=== PATIENT | female | born 1975 | race Caucasian/White ===

== ENCOUNTER 2017-02-02 11:56 | Emergency (ER) | payer MEDICARE, OTHER ==
[2017-02-02] MEDS ORDERED: MIDODRINE HCL10 M1 PO (12:15)
[2017-02-02] MEDS ORDERED: TOPAMAX100 M2 PO (12:16)
[2017-02-02] MEDS ORDERED: NEURONTIN600 M1 PO (12:16)
[2017-02-02] MEDS ORDERED: FLUDROCORTISON0.1 M1 (12:17)
[2017-02-02 12:28] LABS: BASO % 0.3 % (0-2); EOS % 1.7 % (0-7); EOSINOPHIL ABSOLUTE COUNT 0.1 tho/cmm (0.0-0.7); HCT-HEMATOCRIT 44.1 % (34.0-49.0); HGB-HEMOGLOBIN 15.3 gm/dl (12.0-15.5); IMMATURE GRANULOCYTES ABSOLUTE 0.01 tho/cmm (0-0.03); IMMATURE GRANULOCYTES PERCENT 0.1 % (0-0.3); LYMPH ABSOLUTE COUNT 1.9 tho/cmm (0.8-4.5); MCH (MEAN CORPUSCULAR HGB) 27.8 pg (28.0-32.0); MCHC MEAN CORPUSCULAR HGB CONC 34.7 % (32.0-36.0); MCV (MEAN CELL VOLUME) 80.2 fl (82.0-96.0); MEAN PLATELET VOLUME 9.4 cmc (9.4-12.4); MONO % 5.5 % (0-12); MONOCYTE ABSOLUTE COUNT 0.4 tho/cmm (0.0-1.2); NEUTROPHIL ABSOLUTE COUNT 5.1 tho/cmm (1.6-8.0); NEUTROPHIL-AUTOMATED 5.1 tho/cmm (1.6-8.0); NEUTROPHILS % 67.4 % (40-80); PLATELET COUNT 282 tho/cmm (150-450); RED CELL DISTRIBUTION WIDTH 13.9 % (12.4-16.4); WHITE BLOOD COUNT 7.6 tho/cmm (4.0-10.0)
[2017-02-02] MEDS ORDERED: LUNESTA1 M1 PO (12:34)
[2017-02-02] MEDS ORDERED: ZYRTEC10 M7 PO (12:34)
[2017-02-02] MEDS ORDERED: NEXIUM40 M1 PO (12:34)
[2017-02-02] MEDS ORDERED: ASPIRIN EC81 MG PO (12:34)
[2017-02-02] MEDS ORDERED: MAXALT10 M1 (12:35)
[2017-02-02] MEDS ORDERED: ZOFRAN4 M2 (12:35)
[2017-02-02] MEDS ORDERED: FOLTX TABLET1 EAC1 PO (12:36)
[2017-02-02] MEDS ORDERED: multivit (12:36)
[2017-02-02] MEDS ORDERED: iron (12:37)
[2017-02-02] MEDS ORDERED: CYMBALTA60 M1 PO (12:38)
[2017-02-02] MEDS ORDERED: botox (12:38)
[2017-02-02] MEDS ORDERED: LIDOPATCH1 EAC1 (12:38)
[2017-02-02 13:51] LABS: ALBUMIN 3.6 g/dl (3.5-5.0); ALKALINE PHOSPHATASE 91 U/L (33-138); ALT/SGPT 28 U/L (12-78); BILIRUBIN,TOTAL 0.3 mg/dl (0-1.5); BLOOD UREA NITROGEN 7 mg/dl (6-24); CALCIUM 8.6 mg/dl (8.5-10.5); CARBON DIOXIDE-VENOUS 21 mmol/L (22-32); CHLORIDE 114 mmol/l (96-110); GLUCOSE 102 mg/dL (70-110); LIPASE 129 U/L (73-393); SODIUM 147 mmol/L (135-145); eGFR VALUE FOR BLACK >90 mL/Min
[2017-02-02 13:52] LABS: ANION GAP 16 mmol/L (0-20); AST/SGOT 32 U/L (10-40); POTASSIUM 4.2 mmol/L (3.7-5.1)
[2017-02-02] MEDS ORDERED: ZOFRAN ODT4 MG PO (14:48)
== END 2017-02-02 15:07 ==
LOC: EDMED 11:56
PROVIDERS: Emergency Medicine
DX: I49.8 Other specified cardiac arrhythmias (principal); E86.0 Dehydration; R55 Syncope and collapse; R11.2 Nausea with vomiting, unspecified; Z90.710 Acquired absence of both cervix and uterus
CPT/HCPCS: J0780; J1170; J1200; J2405; J7030